=== PATIENT | female | born 1990 | race Caucasian/White ===

== ENCOUNTER 2020-06-08 14:53 | Emergency (ER) | payer OTHER ==
[~2020-06-08] VITALS: Ht 167.6 cm; Wt 68.2 kg
[2020-06-08 15:12] VITALS: BP 107/69
== END 2020-06-08 16:59 | disposition left against medical advice (07) ==
LOC: EMS 14:53
DX: R10.9 Unspecified abdominal pain (principal); Z53.21 Procedure and treatment not carried out due to patient leaving prior to being seen by health care provider